=== PATIENT | female | born 1995 | race African-American/Black ===

== ENCOUNTER 2016-10-05 07:15 | Emergency (ER) | payer MEDICAID ==
[~2016-10-05] VITALS: Ht 162.6 cm; Wt 73.0 kg
[2016-10-05] MEDS ORDERED: IBUPROFEN 600MG TABLET PO ONE (08:15)
[2016-10-05] MEDS ORDERED: PENICILLIN G BENZATHINE 1,200,000 UNITS/2ML SYR IM ONE (08:15)
[2016-10-05] MEDS ORDERED: VISCOUS LIDOCAINE 2% 15 ML UDC PO STA (08:23)
[2016-10-05 08:36] VITALS: BP 114/68
== END 2016-10-05 09:13 | disposition home or self-care (01) ==
LOC: ER 08:14
DX: J02.0 Streptococcal pharyngitis (principal)
CPT/HCPCS: 96372; 99283; J0561; Z7610

== ENCOUNTER 2016-10-23 17:57 | Emergency (ER) | payer MEDICAID ==
[~2016-10-23] VITALS: Ht 162.6 cm; Wt 72.0 kg
[2016-10-23 21:00] VITALS: BP 112/70
== END 2016-10-23 21:00 | disposition home or self-care (01) ==
LOC: ER 17:57
DX: H66.91 Otitis media, unspecified, right ear (principal); D64.9 Anemia, unspecified
CPT/HCPCS: 99283